=== PATIENT | female | born 1960 | race Caucasian/White ===

== ENCOUNTER 2016-10-29 06:26 | Emergency (ER) | payer OTHER ==
[2016-10-29 06:46] VITALS: RESP 18; TEMP 96.4
--- NOTE | 2016-10-29 06:59 | PDOC ---
Facial / Scalp Injury HPI - General Chief Complaint: Headache Stated Complaint: headache Date Seen by Provider: 10/29/16 Time Seen by Provider: 06:30 Source: POSITIVE: Patient Exam Limitations: POSITIVE: No limitations Nurse's Notes Reviewed & Considered: Yes - History of Present Illness Initial Comments: The patient is a 56-year-old female who presents to the emergency department with headache. She states that approximately 11:00 yesterday morning she got up out of bed to 10 to her cat that she thought was about to vomit. She states that she picked up her cat and started running. She states that her legs gave out from her and she fell hitting her head on a metal door. She states that she woke up on the floor on her back and assumes that she had loss of consciousness at least home and terribly. She states that she had pain immediately up to the right forehead and above her right eye. She states that for several hours afterward she felt slow and was having trouble with her speech and finding words. She also has had associated nausea. She continues to have headache and nausea. She has not had any vomiting. She reports some mild blurred vision however denies double vision. She also reports some pain on the left side of her neck and feels some popping at the base of her head when she moves her head. She denies numbness or weakness in her arms or legs. She went to work last night and at change of shift a coworker recommended that she come to the emergency room for evaluation. Have you received a tetanus shot in the past 10 years?: Yes - Patient Home Medications Home Medications: Home Medications Levothyroxine Sodium [Synthroid] 1 tab PO DAILY #14 tab 07/20/16 - Patient Allergies Allergies/Adverse Reactions: Allergies Allergy/AdvReac Type Severity Reaction Status Date / Time Antihistamines - Alkylamine Allergy Severe trouble Verified 10/29/16 06:30 breathing Sulfa (Sulfonamide Allergy Severe felt Verified 10/29/16 06:30 Antibiotics) really hot and trouble breathing codeine Allergy Intermediate itchy Verified 10/29/16 06:30 feeling every where and nausea Past Medical History - heen HEENT History: Denies History Cardiovascular History: Denies History Respiratory History: Denies History Gastrointestinal History: Denies History Genitourinary History: Denies History Endocrine History: Hypothyroidism Musculoskeletal History: Other (please comment) Prosthesis or Implant: No Additional Musculoskeletal History: 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 Neurological History: Denies History Blood Disorders: Denies History Psychiatric History: Denies History Female Reproductive History: Denies History Additional Obstetrical History: d&c after miscarriage Cancer History: Denies History In Past Year Been Physically Harmed or Verbally Threatened: No History of MDRO: Unknown Tobacco Use: Current Every Day Smoker Alcohol Use: Occasionally Type of alcohol normally used: Wine Substance Use Type: None Previous Surgical History: Yes Significant Family History: No pertinent family hx Past Medical History Reviewed: Reviewed - No Changes ROS - Limitations ROS Limitations: No Limitations Constitution: DENIES: Chills, Fever Cardiovascular: REPORTS: Denies Cardiac Symptoms Respiratory: REPORTS: Denies Resp Symptoms Neurological: REPORTS: Headache, Dizziness. DENIES: Numbness, Weakness Gastrointestinal: REPORTS: Nausea. DENIES: Abdominal Pain, Vomitting Eyes: REPORTS: Vision Changes (Mild blurred vision) ENT: REPORTS: Denies Symptoms Facial Exam - General Appearance General Appearance: POSITIVE: Alert, Cooperative, No Acute Distress - HEENT Head / Face: POSITIVE: Other (She does have swelling and tenderness to the right eyebrow with some early periorbital ecchymosis and swelling noted) Eyes: POSITIVE: Other (Pupils are round equal and reactive to light bilaterally and extraocular eye movements are intact) Ears: POSITIVE: Ears Normal Inspection, TM Normal Inspection Nose: POSITIVE: Inspection Normal Oropharynx: POSITIVE: External Inspection Nml, Pharynx Inspect. Nml, Airway Intact, Voice Normal - Neck/Back Neck: POSITIVE: Trachea Midline, Other (She does have some tenderness over the left upper aspect of her neck) - Neuro / Psych Neuro / Psych: POSITIVE: Oriented X3, junior project coordinator Normal As Tested, Motor Normal, Sensation Normal - Respiratory / CVS Respiratory / CVS: POSITIVE: Breath Sounds Normal, No Respiratory Distress, Heart Sounds Normal, Regular Rate/Rhythm - Extremities Extremity: Normal ROM: (All Extremities), Normal Inspection: (All Extremities) Facial / Scalp Injury Progress - Results Reviewed by me Discussed with Radiologist: Yes - Patient's Progress MDM / ED Course: CT scan of the brain reveals no evidence of skull fracture or intracranial hemorrhage per radiologist. CT scan of the cervical spine revealed some degenerative changes with no evidence of acute fracture per radiologist. The patient's symptoms are most consistent with a concussion with associated periorbital ecchymosis/contusion. She also likely has some degree of cervical strain. These findings were discussed with the patient. She is advised to rest and push fluids. She can take Tylenol or NSAIDs as needed for pain. She is advised return to the emergency room if she develops worsening headache, vomiting or dehydration, any worsening or change in symptoms. She is advised follow-up with primary care if continued symptoms in 3-5 days. - Consult Counseled: POSITIVE: Patient, RE: Radiology Results, RE: DX, RE: Need for F/U Patient Care Time - Estimated PCT Patient Care Time (In Minutes): 20 Vital Signs - Recent Vital Signs Vital Signs: Vital Signs (Last 8 hours) Temp Pulse Resp BP Pulse Ox 10/29/16 06:27 96.4 F L 75 18 107/72 99 - VS Reviewed Vital Signs Reviewed: Yes Discharge Clinical Impression: Concussion, Cervical strain, Periorbital contusion of right eye Discharge Disposition: Discharged to Home Condition: Stable Patient Instructions Given at Discharge: Cervical Strain (ED), Concussion (ED) , Contusion in Adults (ED) Additional Instructions: The CAT scan of your head did not reveal any evidence of skull fracture or bleeding on the inside. The images of your neck did not reveal any fracture, there was some early degenerative changes in the neck. Your symptoms are most consistent with a concussion and associated neck strain. In addition you have a contusion around the right eye which will likely result in a black eye. Recommend Tylenol or ibuprofen as needed for pain. Return to the emergency room if worsening headache, vomiting or dehydration, any worsening or change in symptoms. Follow-up with primary care if continued symptoms in 3-5 days. Follow Up With: NONE,NONE [Primary Care Provider] -
--- NOTE | 2016-10-29 07:48 | DI ---
HISTORY: Fall and loss of consciousness TECHNIQUE: Unenhanced images of the brain were obtained and submitted for interpretation. FINDINGS: No acute infarct, intracranial hemorrhage, or mass effect is identified. There is no hydr ocephalus, or significant midline shift. The basal cisterns are not effaced. The visualized paranasal sinuses and mastoids appear relatively well-aerated. IMPRESSION: 1. No intracranial hemorrhage. MRI is recommended if clinical symptoms persist. Densities in both middle cerebral arteries likely artifactual.
--- NOTE | 2016-10-29 07:51 | DI ---
HISTORY: Fall and loss of consciousness. TECHNIQUE: Unenhanced images of the cervical spine were obtained and submitted for interpretation. FINDINGS: There is near reversal of the normal cervical lordosis. There is cervical spondylosis wi th degenerative change, and mild anterolisthesis at multiple levels. There is diffuse narrowing of the C4-5 C5-6 and C6-7 interspaces. The mastoid air cells are clear. The atlantoaxial distance is not widened. The lateral atlantodental distances are not widened. The dens is intact. The occipital condyles are intact. The craniocervical junction is grossly unremarkable. The thyroid gland is slightly enlarged, and could benefit from nonemergent thyroid ultrasound correla tion. Limited sections of the lung apices demonstrate no pneumothorax. There is no significant prevertebral soft tissue thickening. There is no perched or jumped facet. T here is diffuse facet arthropathy. IMPRESSION: 1. No CT evidence of acute cervical spine fracture.
== END 2016-10-29 08:02 | disposition home or self-care (01) ==
LOC: ER 06:26
DX: S06.0X0A Concussion without loss of consciousness, initial encounter (principal); S16.1XXA Strain of muscle, fascia and tendon at neck level, initial encounter; S00.11XA Contusion of right eyelid and periocular area, initial encounter; R11.0 Nausea; H53.8 Other visual disturbances; R42 Dizziness and giddiness; W01.198A Fall on same level from slipping, tripping and stumbling with subsequent striking against other object, initial encounter
CPT/HCPCS: 70450; 72125; 99283

== ENCOUNTER → 2016-11-03 | Outpatient (CLI) | payer OTHER ==
[2016-11-03 18:58] LABS: FREE T4 (FREE THYROXINE) 0.93 ng/dL (0.93-1.71)
== END ==
LOC: MOB LAB 13:23
PROVIDERS: ATTEND Family Medicine
DX: E03.9 Hypothyroidism, unspecified (principal)
CPT/HCPCS: 36415; 84439; 84443